=== PATIENT | female | born 1995 | race Caucasian/White ===

== ENCOUNTER 2020-06-15 00:35 | Outpatient (CLI) | payer SELFPAY ==
[2020-06-15 17:38] LABS: SARS-CoV-2 RNA PCR Negative
== END 2020-06-15 00:36 | disposition home or self-care (01) ==
LOC: ANHCOVIDDT 00:35
PROVIDERS: Visit Provider Student in an Organized Health Care Education/Training Program
DX: Z01.812 Encounter for preprocedural laboratory examination (principal); Z20.822 Contact with and (suspected) exposure to COVID-19
CPT/HCPCS: C9803; U0003; U0005

== ENCOUNTER 2020-06-15 09:08 | Outpatient (CLI) | payer SELFPAY ==
[2020-06-15 09:43] LABS: Hematocrit 40.3 % (37.0-47.0); Hemoglobin 13.5 g/dL (12.0-15.0); Mean Corpuscular HGB Conc 33.5 g/dl (32-36); Mean Corpuscular Hemoglobin 30.5 pg (26-34); Mean Corpuscular Volume 91.2 fl (80-100); Mean Platelet Volume 9.6 fl (7.4-10.4); Platelet Count Result 246 k/mm3 (150-375); Red Blood Count 4.42 M/mm3 (4.2-5.4); Red Cell Distribution Width 11.4 % (11.5-14.5); White Blood Count 4.4 K/mm3 (4.5-10.0)
== END 2020-06-15 09:09 | disposition home or self-care (01) ==
PROVIDERS: Visit Provider Student in an Organized Health Care Education/Training Program
DX: Z01.812 Encounter for preprocedural laboratory examination (principal); N83.209 Unspecified ovarian cyst, unspecified side
CPT/HCPCS: 36415; 85027; 86850; 86900; 86901

== ENCOUNTER → 2020-06-18 15:53 | Outpatient (CLI) | payer SELFPAY ==
[2020-06-18 22:05] LABS: SARS-CoV-2 RNA PCR Negative
== END ==
PROVIDERS: Visit Provider Student in an Organized Health Care Education/Training Program
DX: Z01.812 Encounter for preprocedural laboratory examination (principal); Z20.822 Contact with and (suspected) exposure to COVID-19
CPT/HCPCS: C9803; U0003; U0005

== ENCOUNTER 2020-06-21 00:48 | Day surgery (SDC) | payer SELFPAY ==
[2020-06-13 14:54] VITALS: BMI 20.7
--- NOTE | 2020-06-15 16:14 | WPDANESEPPF ---
Anes - Initial Pre Proc Eval Procedure: Operation Date: 06/18/20 12:00 Proposed Procedures p Laparoscopy With Bilateral Ovarian Cystectomy - Omar Lawrence MD Date/Time: 06/15/20 16:14 Surgeon: Omar Lawrence MD Pre Op Diagnosis: Bilateral Ovarian Cysts, Pelvic Pain Patient Data Age: 24 Gender: F Height: 1.65 m Weight: 56.7 kg Allergies Allergy/AdvReac Type Severity Reaction Status Date / Time cefprozil Allergy Severe Hives Verified 06/13/20 14:51 Home Medications Medication Instructions Recorded Confirmed Type fexofenadine [Lore] 30 mg PO Q12H PRN 06/13/20 06/13/20 History PMFSH Social History Social History Smoking status: Never smoker Second hand tobacco smoke exposure: No Alcohol intake: never Substance use: never Spiritual care concerns: No Anes - Eval Final PreProcedure Day of Procedure 06/15/20 16:14 Patient weight: normal Heart: regular rate and rhythm Lungs: clear to auscultation and normal air movement Airway: Mallampati scale class II Neurological: alert and oriented Last oral intake: >/= 8 hours ASA classification: I Emergent: no Anesthetic plan: proceed Anesthesia type and monitoring: general ETT Informed Consent: The patient's anesthetic plan and its attendant risks and benefits were discussed with the patient/family/POA. Questions were solicited and answers provided to the satisfaction of the patient/family/POA.
--- NOTE | 2020-06-18 09:53 | PM.IMHP ---
H&P: HPI History of Present Illness Date/Time: 06/18/20 09:53 Chief Complaint: ovarian cysts pelvic pain Narrative: Radha Robert is a 24 year old female who initially presented to the ED with cramping pelvic pain. patient had acute onset right lower quadrant pain. She states the pain was sharp in nature and felt like her abdomen was tight. Patient had a CT scan performed and pelvic ultrasound in the emergency room which showed bilateral ovarian complex cyst suspicious for endometriomas. Patient was noted to have ovarian cyst 3-4 years ago on imaging but states they are much smaller. Patient reports regular menses with moderate bleeding. She states her periods have been more painful recently. Review of Systems Cardiovascular: Cardiovascular: Denies chest pain, Denies leg edema, Denies palpitations, Denies dyspnea and Denies dyspnea on exertion Respiratory: Respiratory: Denies cough, Denies dyspnea and Denies dyspnea on exertion Gastrointestinal: Gastrointestinal: Denies abdominal pain, Denies constipation, Denies diarrhea, Denies nausea and Denies vomiting Genitourinary: Genitourinary: Denies hematuria, Denies urinary frequency, Denies dysuria, Denies pelvic pain, Denies urinary incontinence and Denies vaginal discharge Neurologic: Reports system reviewed and no additional complaints, except as documented Psychiatric: Psychiatric: Reports no additional psychiatric complaints Endocrine: Endocrine: Denies palpitations PMFSH Social History Social History Smoking status: Never smoker Second hand tobacco smoke exposure: No Alcohol intake: never Substance use: never Living arrangements: with family Spiritual care concerns: No Meds Home Medications and Allergies Home Medications Medication Instructions Recorded Confirmed Type fexofenadine [Lore] 30 mg PO Q12H PRN 06/13/20 06/13/20 History Allergies Allergy/AdvReac Type Severity Reaction Status Date / Time cefprozil Allergy Severe Hives Verified 06/13/20 14:51 Exam Const: General: no acute distress Eyes: EOM: EOMs intact bilaterally Neck: Neck: supple Thyroid: thyroid normal Chest: Breast/axilla inspection: normal inspection of the breasts Breast/axilla palpation: normal palpation of the breasts, normal palpation of the axillae and no axillary lymphadenopathy Resp: Effort & Inspection: normal respiratory effort Auscultation: clear to auscultation bilaterally Cardio: Rate: regular rate Rhythm: regular rhythm GI: Inspection: non-distended GI Palp: Yes Soft to palpation, No Tenderness to palpation present (GI) and No Guarding due to palpation present (GI) Auscultation: normal bowel sounds : General: Yes bladder normal to palpation External Female Exam: normal external appearance Speculum Exam - Vagina: normal vaginal discharge and No vaginal bleeding Speculum Exam - Cervix: normal appearance of the cervix and nontender Bimanual Exam- Adnexa, other: tender OB/external & speculum: No vaginal bleeding Skin: General skin exam: normal color and no rashes or lesions noted Neuro: Cognition (Neuro): normal cognition Speech: normal speech Extrem: General: normal to inspection and no edema Psych: Mental Status: mental status grossly normal Affect: normal affect Assessment and Plan Assessment and plan (1) Ovarian cyst: Code(s): N83.209 - Unspecified ovarian cyst, unspecified side Status: Acute Assessment and Plan: Patient presented to the emergency room with acute onset pelvic pain. Pelvic ultrasound and CT revealed bilateral ovarian cysts. Right ovary measured 9.3 x 6.2 x 5.4 cm with a complex cyst measuring 9.1 x 4.9 x 5.0 cm. The cyst was homogenously hypoechoic with no evidence of internal blood flow. Images suggestive of endometrioma left ovary measured 8 x 7.1 x 6.7 cm with a similar cyst measuring 6.9 x 6.7 x 5.7 cm. We will plan for laparoscopic bilateral cystectomy ffor suspected bilate
--- NOTE | 2020-06-18 10:40 | WPDHPUPDATE1 ---
History and Physical Update Update Date/Time: 06/18/20 10:40 History and Physical has been reviewed, including an updated exam of the patient. There are NO changes in the patient's condition. Risks, benefits, and alternatives have been discussed and questions answered. Patient agrees to proceed with procedure.
--- NOTE | 2020-06-20 11:13 | PC.NURSE ---
STATES NO CHANGE IN HEALTH HX SINCE LAST INTERVIEW 06/13/20
--- NOTE | 2020-06-20 13:42 | WPDANESEPPF ---
Anes - Initial Pre Proc Eval Procedure: Operation Date: 06/21/20 07:30 Proposed Procedures p Laparoscopy With Bilateral Ovarian Cystectomy - Omar Lawrence MD Date/Time: 06/20/20 13:42 Surgeon: Omar Lawrence MD Pre Op Diagnosis: Bilateral Ovarian Cysts, Pelvic Pain Patient Data Age: 24 Gender: F Height: 1.65 m Weight: 56.7 kg Allergies Allergy/AdvReac Type Severity Reaction Status Date / Time cefprozil Allergy Severe Hives Verified 06/21/20 06:10 Home Medications Medication Instructions Recorded Confirmed Type fexofenadine [Lore] 30 mg PO Q12H PRN 06/13/20 06/20/20 History Patient hx anesthesia problems: none Family hx anesthesia problems: none PMFSH Social History Social History Smoking status: Never smoker Second hand tobacco smoke exposure: No Alcohol intake: never Substance use: never Living arrangements: with family Spiritual care concerns: No Anes - Eval Final PreProcedure Day of Procedure 06/20/20 13:42 Patient weight: overweight Heart: regular rate and rhythm Lungs: clear to auscultation and normal air movement Airway: Mallampati scale class II Neurological: alert and oriented Last oral intake: >/= 8 hours ASA classification: I Emergent: no Anesthetic plan: proceed Anesthesia type and monitoring: general ETT Informed Consent: The patient's anesthetic plan and its attendant risks and benefits were discussed with the patient/family/POA. Questions were solicited and answers provided to the satisfaction of the patient/family/POA.
[2020-06-21] VITALS (8 sets, daily range): BP systolic 111–137; BP diastolic 53–90; PULSE 73–94; RESP 12–16; TEMP 36.4–37.1; O2SAT 100
[2020-06-21] MEDS: ACETAMINOPHEN 500 MG TABLET 1000 MG PO (06:35)
[2020-06-21] MEDS: LACTATED RINGERS 1,000 ML 30 ML IV CONT ×2 (06:36→09:54)
[2020-06-21] MEDS: KETOROLAC 15 MG/ML VIAL (*BKC) IV PUSH (06:38)
--- NOTE | 2020-06-21 06:55 | WPDHPUPDATE1 ---
History and Physical Update Update Date/Time: 06/21/20 06:55 History and Physical has been reviewed, including an updated exam of the patient. There are NO changes in the patient's condition. Risks, benefits, and alternatives have been discussed and questions answered. Patient agrees to proceed with procedure.
[2020-06-21] MEDS: LIDO 1%/EPINEPHRINE 1:100,000 50 ML VIAL 10 ML INFILTRATE (07:33)
--- NOTE | 2020-06-21 09:46 | PM.PROC ---
Procedure Note - Detailed Date of procedure: 06/21/20 Pre-op diagnosis: Bilateral Ovarian Cysts, Pelvic Pain Procedure performed: laparoscopic bilateral ovarian cystectomy lysis of adhesions- 45 min Description of procedure: FULL GYNECOLOGY OPERATIVE REPORT INDICATIONS: The risks, benefits and alternatives of laparoscopy were discussed with the patient, including but not limited to infection, severe loss of blood, cardiac arrest, , thrombosis, injury to other organs such as bowel, bladder or ureter, fistula, injury to blood vessels, risk of blood transfusion, loss of one or more ovary, and possible need for laparotomy to complete the surgery or any repair. OPERATIVE PROCEDURE: The patient was taken to the operating room where general endotracheal anesthesia was undertaken and found to be adequate. She was then prepped and draped in the dorsal lithotomy position and placed in adjustable stirrups. A pre-operative team brief and a time out were completed. A catheter was placed to drain the bladder. Retractors were placed placed in the vagina and the cervix was identified. An acordrine uterine manipulator was placed. Attention was then turned to the abdomen which was anesthetized umbilically with injected anesthestic. A 5 mm skin incision was made in the umbilicus. A 5 mm optical trocar was then placed with direct camera visualization of the abdominal layers during placement. The trocar stylet was removed and the camera was used to verify intra-abdominal placement. CO2 insufflation was then connected and resumed. The pelvis was inspected. A left lower quadrant 5 mm port was placed, in addition to a right lower quadrant 5mm port in the standard fashion after using local anesthetic. The pelvis was then inspected and two large ovarian cysts were noted. The ovaries were noted to be adhered to the posterior cul de sac and the pelvic side wall. Aspiration needle was inserted into the cyst and suction was applied. The cysts were filled with dark brown blood. Both cysts were drained with the aspiration needle. A suction engine buildup mechanic was then introduced through the incisions made on the cyst and the inside of each cyst was copiously irrigated and suctioned. Both ovaries were then sharply dissected off the posterior cul de sac and the pelvic sideway. Lysis of adhesions took approximately 45 min to free each ovary enough to manipulate to perform the cystectomy. The areas of adhesion were examined and found to be hemostatic. Attention was then turned to the right ovarian cyst. The incision that was made with the aspiration needle was then enlarged with blunt traction using a grasper and maryland grasper. The cyst wall was then teased away from the ovarian tissue. The cyst wall was extracted from the ovary with gentle traction using graspers. After the cyst wall was removed, the surgical bed and ovarian tissue was made hemostatic with monopolar scissors. Similar procedure was then performed with the left ovary, again extractging the ovarian cyst wall from the ovary with gentle traction. Again, the surgical bed was made hemostatic with monopolar scissorts. Both ovarian cyst scott were too large to remove through the 5mm port side. The RLQ port was removed and replaced with an 11mm trocar. An endopouch was introduced and the cyst scott were placed inside. The pouch and both specimens were removed without difficulty. The surgical field was thoroughly irrigated using normal saline. Given the amount of dissection, all surgical beds were made hemostatic with hemaderm. All surgical beds were noted to be hemostatic. The 11 mm port was removed. The fascia was visualized and grasped with Jenna clamps. A single figure of eight suture with 0-vicryl was placed under direct visualization to close the fascia. Sponge, lap and needle counts were correct. All skin incisions were closed with 4-0 Vicryl suture subcuticularly. The uterine manipulator was removed from the uterus. Hemostasis of the c
[2020-06-21] MEDS: fentaNYL CITRATE INJ (*CRX) 100 MCG/2 ML VIAL 25 MCG IV PUSH ×2 (10:40→10:44)
[2020-06-21] MEDS: oxyCODONE HCL (*CRX) 5 MG TAB IR PO (11:12)
== END 2020-06-21 11:55 | disposition home or self-care (01) ==
PROVIDERS: Visit Provider Student in an Organized Health Care Education/Training Program
PROC: (CPT 49320; principal; 2020-06-21 07:30)
DX: N80.1 Endometriosis of ovary (principal); N73.6 Female pelvic peritoneal adhesions (postinfective); R10.2 Pelvic and perineal pain
CPT/HCPCS: 58662; 88305; A9270; J1100; J1200; J1885; J2250; J2405; J2704; J2710; J3010; J7030; J7120

== ENCOUNTER → 2023-03-02 12:46 | Outpatient (CLI) | payer SELFPAY ==
--- NOTE | ~2023-03-02 | US_ITS ---
EXAMINATION: US transvaginal DATE: 03/02/2023 13:31 INDICATION: Ovarian cyst. TECHNIQUE: Multiple transvaginal sonographic images of the pelvis were obtained. COMPARISON: None. FINDINGS: The uterus measures 7.8 x 4.2 x 4.8 cm. There is physiologic free fluid in the pelvis. The endometria l complex measures 1.1 cm in thickness. The right ovary measures 4.4 x 2.4 x 4.6 cm. The left ovary m easures 5.7 x 4.0 x 5.0 cm. The left ovary, there is a 4.1 cm hypoechoic mass. There is normal vascul ar flow in the ovaries. IMPRESSION: 1. Nonspecific 4.1 cm hypoechoic mass in left ovary. The differential diagnosis includes hemorrhagic cyst, endometrioma, dermoid, and neoplasm. Pelvis ultrasound is recommended in 6-12 weeks. Reviewed, dictated and finalized at location A. IMPRESSION: 1. Nonspecific 4.1 cm hypoechoic mass in left ovary. The differential diagnosis includes hemorrhagic cyst, endometrioma, dermoid, and neoplasm. Pelvis ultraso und is recommended in 6-12 weeks.
== END ==
PROVIDERS: PCP Obstetrics & Gynecology; Visit Provider Obstetrics & Gynecology
DX: N83.202 Unspecified ovarian cyst, left side (principal)
CPT/HCPCS: 76830